=== PATIENT | male | born 1980 | race Caucasian/White ===

== ENCOUNTER → 2016-04-19 | Outpatient (CLI) | payer OTHER | END | disposition home or self-care (01) | LOC: RAD.S 04-18 08:00 | DX: K80.20 Calculus of gallbladder without cholecystitis without obstruction (principal) ==

== ENCOUNTER 2016-06-10 22:13 | Emergency (ER) | payer OTHER | END 2016-06-10 23:55 | disposition home or self-care (01) | DX: N45.1 Epididymitis (principal); Z88.5 Allergy status to narcotic agent ==